=== PATIENT | male | born 1970 | race Caucasian/White ===

== ENCOUNTER → 2017-08-23 | Outpatient (CLI) | payer BC | LOC: MHCPAIN 14:30 | DX: G89.29 Other chronic pain (principal); M54.12 Radiculopathy, cervical region; M47.812 Spondylosis without myelopathy or radiculopathy, cervical region | CPT/HCPCS: G0463 ==

== ENCOUNTER → 2017-09-16 | Outpatient (CLI) | payer BC | LOC: MHCPAIN 12:03 | DX: M50.321 Other cervical disc degeneration at C4-C5 level (principal); M25.78 Osteophyte, vertebrae; M48.02 Spinal stenosis, cervical region | CPT/HCPCS: J1100; J2250; J3010; Q9967 ==

== ENCOUNTER → 2017-09-28 | Outpatient (CLI) | payer BC | LOC: MHCPAIN 15:43 | DX: Z53.8 Procedure and treatment not carried out for other reasons (principal) ==

== ENCOUNTER → 2017-11-17 | Outpatient (CLI) | payer BC | LOC: MHCPAIN 16:05 | DX: G89.29 Other chronic pain (principal); M50.90 Cervical disc disorder, unspecified, unspecified cervical region; M54.12 Radiculopathy, cervical region | CPT/HCPCS: G0463 ==

== ENCOUNTER → 2017-11-18 | Outpatient (CLI) | payer BC | LOC: MHCPAIN 14:34 | DX: M50.90 Cervical disc disorder, unspecified, unspecified cervical region (principal); M54.12 Radiculopathy, cervical region | CPT/HCPCS: J1100; J2250; J3010; Q9967 ==

== ENCOUNTER → 2021-01-08 | Outpatient (CLI) | payer BC | LOC: MHCPAIN 09:02 | DX: M47.813 Spondylosis without myelopathy or radiculopathy, cervicothoracic region (principal); M54.2 Cervicalgia; M54.6 Pain in thoracic spine | CPT/HCPCS: G0463 ==

== ENCOUNTER → 2021-01-16 | Outpatient (CLI) | payer BC | LOC: MHCPAIN 08:22 | DX: M47.813 Spondylosis without myelopathy or radiculopathy, cervicothoracic region (principal); M54.12 Radiculopathy, cervical region | CPT/HCPCS: J1100; Q9967 ==

== ENCOUNTER → 2021-01-21 | Outpatient (CLI) | payer BC | LOC: MHCPAIN 13:02 | DX: M47.813 Spondylosis without myelopathy or radiculopathy, cervicothoracic region (principal); M54.12 Radiculopathy, cervical region | CPT/HCPCS: G0463 ==

== ENCOUNTER → 2021-01-23 | Outpatient (CLI) | payer BC | LOC: MHCPAIN 10:52 | DX: M47.812 Spondylosis without myelopathy or radiculopathy, cervical region (principal); M54.12 Radiculopathy, cervical region | CPT/HCPCS: J1100; Q9967 ==